=== PATIENT | male | born 1965 | race Caucasian/White ===

== ENCOUNTER 2021-08-19 08:13 | Inpatient (IN) | payer BC ==
[2021-08-19] VITALS (22 sets, daily range): BP systolic 109–150; BP diastolic 62–88
[~2021-08-19] VITALS: Ht 182.9 cm; Wt 88.5 kg
[2021-08-19 08:48] LABS: ABSOLUTE NEUTROPHILS 3.2 thou/uL (1.4-8.2); BASOPHILS 0.4 % (0.0-2.0); HEMATOCRIT 47.1 % (42.0-52.0); HEMOGLOBIN 16.4 gm/dL (14.0-18.0); MCHC 34.8 g/dL (28.0-37.0); MCV 97.7 fL (80.0-100.0); MONOCYTES 9.9 % (1.0-8.0); PLATELET COUNT 186 thou/uL (150-400); POLYS 83.7 % (36.0-66.0); RBC 4.82 mil/uL (4.50-6.00); RDW 12.1 % (10.5-14.5); WBC 3.9 thou/uL (4.0-11.0)
[2021-08-19 08:56] LABS: CALCIUM 8.5 mg/dL (8.5-10.1); CREATININE 1.2 mg/dL (0.7-1.3)
--- NOTE | 2021-08-19 08:56 | EKG ---
[address] [place] [address] ELECTROCARDIOGRAM REPORT Name: DWAYNE ATKINS Room #: PRE M.R.#: [id number] Admission: Attend Phys: Discharge: Date of : 61 Report #: [id number] [facility] ED Test Date: 2021-08-19 Test Time: 08:27:46 Pat Name: DWAYNE ATKINS Department: Room: Gender: Ostrich Farmer: PIERO : 1965 Requested By: Abrahan Bojorquez Order Number: [id number] MD: Javier Desir Measurements Intervals [place] Rate: 97 P: 37 [place]: 140 QRS: -31 QRSD: 83 T: 11 QT: 329 QTc: 418 Interpretive Statements Sinus rhythm Inferior infarct, old No previous ECG available for comparison Electronically Signed On 08-19-2021 8:56:31 ACCOUNT ADVISOR by Javier Desir [email or web address] <ELECTRONICALLY SIGNED> By: Javier Desir MD, [facility] 08/19/21 0856 0827 0827 Javier Desir MD, [facility] /EPI
[2021-08-19 09:06] LABS: ALBUMIN 3.1 g/dL (3.4-5.0); TOTAL BILIRUBIN 1.6 mg/dL (0.2-1.0); TOTAL PROTEIN 7.2 g/dL (6.4-8.2)
[2021-08-19 11:00] LABS: BE(vivo) -2.6 mmol/L (-2 to +3); HCO3 18.9 mmol/L (22.0-26.0); PCO2 25.8 mmHg (35.0-45.0); pH 7.483 (7.360-7.450); sO2 83.9 % (92.0-98.0)
[2021-08-19 11:01] LABS: PO2 43.5 mmHg (80.0-100.0)
[2021-08-19 12:11] LABS: BE(vivo) 0.4 mmol/L (-2 to +3); HCO3 22.6 mmol/L (22.0-26.0); PCO2 30.5 mmHg (35.0-45.0); PO2 69.4 mmHg (80.0-100.0); pH 7.487 (7.360-7.450); sO2 95.3 % (92.0-98.0)
--- NOTE | 2021-08-19 15:46 | NUR ---
PATIENT ADMITTED TO ICU RM 240 THIS AFTERNOON. ON BIPAP, FEBRILE, TACHYPNIC. OTHER VITALS STABLE. ALERT AND ORIENTED AND DENIES PAIN OR SOB. ADMISION ASSESSMENT, HISTORY, AND EDUCATION COMPLETED AND QNS ANSWERED. ORDERS ACKNOWLEDGED AND SPOUSE UPDATED OVER THE PHONE AND PRIVACY CODE PROVIDED.
--- NOTE | 2021-08-19 22:20 | NUR ---
SPOKE WITH Feng SHERMAN SENIOR SUPPLY CHAIN ANALYST D/T PATIENT STATING FEELING ANXIOUS, PULLING AT MEDICAL EQUIPMENT, TACHYPNEIC, AND FIDGETING WITH BED LINEN. ORDERS RECEIVED.
--- NOTE | 2021-08-19 23:20 | NUR ---
SPOKE WITH DR. TOM D/T PATIENT CONTINUING TO PULL AT MEDICAL EQUIPMENT, REMOVING BIPAP MASK, AND TACHYPNEIC. ORDERS RECEIVED.
[2021-08-20] VITALS (33 sets, daily range): BP systolic 92–179; BP diastolic 54–155
[2021-08-20 02:19] LABS: ABSOLUTE NEUTROPHILS 2.3 thou/uL (1.4-8.2); BASOPHILS 0.4 % (0.0-2.0); EOSINOPHILS 0.1 % (0.0-3.0); HEMATOCRIT 41.8 % (42.0-52.0); HEMOGLOBIN 14.5 gm/dL (14.0-18.0); LYMPHOCYTES 11.9 % (24.0-44.0); MCH 34.5 pg (26.0-34.0); MCHC 34.7 g/dL (28.0-37.0); MCV 99.4 fL (80.0-100.0); PLATELET COUNT 194 thou/uL (150-400); POLYS 75.6 % (36.0-66.0); RDW 12.5 % (10.5-14.5)
[2021-08-20 02:59] LABS: ALBUMIN 2.4 g/dL (3.4-5.0); CALCIUM 7.6 mg/dL (8.5-10.1); CREATININE 1.1 mg/dL (0.7-1.3); MAGNESIUM 2.4 mg/dL (1.8-2.4); POTASSIUM 4.1 mmol/L (3.5-5.1); TOTAL BILIRUBIN 0.9 mg/dL (0.2-1.0); TOTAL PROTEIN 6.1 g/dL (6.4-8.2)
--- NOTE | 2021-08-20 08:14 | HC ---
[facility] [place] [address] [place] [address] CONSULTATION Name: DWAYNE ATKINS Room #: 240-P ADM IN M.R.#: [id number] Admission: 08/19/21 Attend Phys: Logan Ramos MD Discharge: Date of : 61 Report #: [id number] THIS REPORT FOR: cc: FAM - Family physician unknown FAM - Family physician unknown Josue Kat MD ~ DATE OF SERVICE: 08/19/2021 INFECTIOUS DISEASE CONSULTATION ATTENDING PHYSICIAN: Dr. Ramos. REASON FOR EVALUATION: COVID-19 infection, complicated by pneumonitis, respiratory failure with ARDS. HISTORY OF PRESENT ILLNESS: Chart reviewed. The patient examined. This is a 55-year-old gentleman without significant medical history, who has been ill for the last number of days, associated nonproductive cough, subsequently developed progressive dyspnea, flu-like symptoms. He notes severe headache early on with fevers, presented to the Emergency Room, confirmed to have a positive COVID test. He was borderline leukopenic, lymphocytopenic as well. Influenza antigen was negative. He was hyponatremic with sodium 125. His LFTs were elevated, AST of 219, ALT of 145. Chest x-ray showed bilateral diffuse multifocal infiltrates. CT of the chest ____ mildly elevated D-dimer. No evidence of ____ confirmed extensive pulmonary infiltrates. Initial ABGs showed pH 7.483, pCO2 of 25.8, pO2 of 43.5 on 15 liters with FiO2 of 97%. Procalcitonin was 0.31. He was started on empiric therapy with azithromycin, ceftriaxone, remdesivir was started in addition to corticosteroids. He is in moderate distress at this point, he is generally lucid, maintained on the BiPAP at 100%. ALLERGIES: None known. MEDICATIONS: Currently include ascorbic acid, zinc, cholecalciferol, dexamethasone, guaifenesin, famotidine, zolpidem, ceftriaxone, azithromycin, remdesivir. PAST MEDICAL HISTORY: Otherwise, unremarkable. SOCIAL HISTORY: Former smoker. Occasional ethanol. No illicit drug use. FAMILY HISTORY: Noncontributory. REVIEW OF SYSTEMS: Otherwise, unremarkable. PHYSICAL EXAMINATION: GENERAL: He is in omkchjol-kd-xmukba distress at this point. Breathing is [facility] [address] [place] [address] CONSULTATION Name: DWAYNE ATKINS Room #: 240-P [facility] IN .R.#: [id number] Admission: 08/19/21 Attend Phys: Logan Ramos MD Discharge: Date of : 61 Report #: [id number] labored. He is generally lucid, reasonably well nourished. VITAL SIGNS: Temperature max 101.0, more recently 97.1. Pulse 83, respirations 16, blood pressure 133/86. SKIN: Warm, dry, no rashes. HEENT: BiPAP in place. NECK: Supple. Extraocular muscles intact. LUNGS: Bilateral scattered coarse breath sounds. HEART: Regular. I do not appreciate a murmur. ABDOMEN: Slightly distended, mildly firm, nontender. EXTREMITIES: No cyanosis or edema. GENITOURINARY AND RECTAL: Deferred. LABORATORY DATA: Sed rate of 15. CRP of 91.3. ABGs as described above. Electrolytes: Sodium 125, potassium 4.0, chloride 90, bicarbonate is 25, anion gap of 10, BUN and creatinine 12 and 1.2. Glucose of 120. AST of 219, ALT of 145, total bilirubin of 1.6, protein of ____, albumin 3.1. Influenza antigen was negative. CBC: White count of 3.9, H and H of 16.4 and 47.1, platelets of 186. ASSESSMENT AND PLAN: Coronavirus-19 infection, complicated by pneumonitis from respiratory failure with acute respiratory distress syndrome with some evidence of multiorgan dysfunction, though he has no known medical history. I would be concerned about an occult process. We will do additional diagnostic testing including lab work as well as abdominal ultrasound to evaluate the biliary tract. He remains quite tenuous at this point. I would not be surprised if he had further clinical deterioration. We will broaden out his antimicrobial therapy. <ELECTRONICALLY SIGNED> By: Josue Kat MD 08/20/21 0814 1532 0024 Josue Kat MD /nt
--- NOTE | 2021-08-20 13:39 | NUR ---
PT SPOKE TO DR. LINDSAY, DR. STAFFORD AND DR. TOM ABOUT HIS DECISION TO BE INTUBATED, ONE MOMENT THE PATIENT STATES HE DOES NOT WANT INTUBATION AND THEN THE NEXT HE DOES WANT TO BE INTUBATED, OR TO SPEAK TO HIS ABOUT IT. THERE REMAINS SOME CONFUSION REGARDING PATIENTS WISHES REGARDING INTUBATION. SPOKE WITH PT (ROSY) REGARDING HIS CARE. SHE WOULD LIKE FOR A DOCTOR TO REACH OUT TO HER AND UPDATE HER REGARDING PT CARE, TREATMENT PLANS AND GOALS. ROSY () PHONE NUMBER IS [phone]
--- NOTE | 2021-08-20 15:15 | NUR ---
CONSULT [id number] WAS COMPLETED BY THIS PHARMACIST IN CHARGE, TODAY.
--- NOTE | 2021-08-20 15:44 | NUR ---
PICC PLACED FOR ICU NEEDS. PT AWARE OF INCREASED RISK FOR DVT WITH PICC OVER A CL
--- NOTE | 2021-08-20 16:27 | NUR ---
PT ADMITTED RELATED TO COVID AND HYPOXIA. CM REVIEWED CHART AND SPOKE WITH CARE TEAM. PT'S CARE DISCUSSED DURING ICU ROUNDS. PT IS ON BIPAP. PT ON REGULAR DIET. PT ON IV ABX AND GETTING REMDESIVIR. PT IS ALERT AND ORIENTED. CARE TEAM INDICATED THAT PT WANTED TO COMPLETE DPOA PAPERWORK. CM CALLED AND SPOKE WITH PT'S SPOUSE ROSY THIS MORNING. SHE INDICATED THAT SHE AND PT RESIDE IN A HOUSE AND THAT PT HAD BEEN INDEPEDNENT WITH ADLS AND GAIT NEWS DIRECTOR. SHE INDICATED THAT SHE IS EXPERIENCING SYMPTOMS HERSELF. SHE INDICATED THAT PT HASN'T SEEN A PHYSICIAN IN A LONG TIME BUT HAD LAST SEEN DR. HORTENCIA BARRAGAN. SPOUSE INDICATED THAT SHE DIDN'T THINK THEY WANTED REMDESIVIR. SHE MENTIONED THERE WERE SOME TESTES SHE MAY WANT TO SEE ABOUT HAVING DONE AND A PARTICULAR PROTOCAL THAT SHE MAY BE INTERESTED IN. CM INDICATED THAT CM WOULD REACH OUT TO PHYSICIANS TO CALL HER TO DISCUSS PT'S CARES. DPOA COMPLETED. CM FOLLOWING REGARDING DC PLANNING.
[2021-08-20 23:06] LABS: HIV ANTIBODY Non Reactive (Non Reactive)
[2021-08-21] VITALS (30 sets, daily range): BP systolic 100–200; BP diastolic 70–112
[2021-08-21 04:38] LABS: BE(vivo) 2.9 mmol/L (-2 to +3); PCO2 25.1 mmHg (35.0-45.0); PO2 291.9 mmHg (80.0-100.0); pH 7.579 (7.360-7.450); sO2 99.8 % (92.0-98.0)
[2021-08-21 04:48] LABS: ALBUMIN 2.6 g/dL (3.4-5.0); CALCIUM 8.2 mg/dL (8.5-10.1); CREATININE 0.9 mg/dL (0.7-1.3); MAGNESIUM 2.5 mg/dL (1.8-2.4); POTASSIUM 4.3 mmol/L (3.5-5.1); TOTAL BILIRUBIN 0.5 mg/dL (0.2-1.0); TOTAL PROTEIN 6.2 g/dL (6.4-8.2)
[2021-08-21 05:15] LABS: ABSOLUTE NEUTROPHILS 4.8 thou/uL (1.4-8.2); BASOPHILS 0.1 % (0.0-2.0); HEMATOCRIT 45.4 % (42.0-52.0); HEMOGLOBIN 15.4 gm/dL (14.0-18.0); LYMPHOCYTES 8.6 % (24.0-44.0); MCH 33.9 pg (26.0-34.0); MCV 99.6 fL (80.0-100.0); MONOCYTES 10.5 % (1.0-8.0); PLATELET COUNT 252 thou/uL (150-400); POLYS 80.8 % (36.0-66.0); RBC 4.56 mil/uL (4.50-6.00); RDW 12.8 % (10.5-14.5); WBC 5.9 thou/uL (4.0-11.0)
--- NOTE | 2021-08-21 11:46 | NUR ---
PT'S CALLED EARLIER IN THE MORNING AT 0830, REQUESTED UPDATE ON THE PT, PT FOUR DIGIT CODE VERIFIED, RN PROVIDED UPDATE BEST POSSIBLE INCLUDING CURRENT ANTIBIOTIC REGIMEN PT IS ON, AND HOW THE PT IS DOING ON THE BIPAP MACHINE. RN DID STATE THAT SINCE IT IS THE BEGINNING OF THE SHIFT, RN CANNOT PROVIDE THE BEST UPDATE COMPARED TO END OF THE DAY WHEN RN HAD CHANCE TO INTERACT CLOSER WITH THE PATIENT, STATED UNDERSTANDING AND STATED SHE WILL CALL LATER IN THE DAY AND ALSO STATED WANTING TO SPEAK WITH A PHYSICIAN, RN LATER SAW THE HOSPITALIST AND REQUESTED THAT SHE REACH OUT TO THE WHEN POSSIBLE, NUMBER PROVIDED. PT WAS IN THE ROOM ON THE BIPAP, HAD QUESTIONS REGARDING WHAT TO DO AND COURSE OF CARE, RN EXPLAINED THAT CONSERVATION OF ENERGY TO FIGHT THE VIRUS WAS VITAL AT THIS TIME AND PT SHOULD FOCUS ON INHALING SLOW/DEEP TO OXYGENATE MANY ALVEOLI'S POSSIBLE, AND SHOULD KEEP A CALM MIND, LEAVE THE BIPAP ON OXYGEN IS A VITAL SOURCE TO ENERGY CONVERSION, ALSO DISCUSSED THE NEED FOR NUTRIENT. RN ALSO PROVIDED IN DEPTH EDUCATION ABOUT MEDICATIONS BEING PROVIDED AND WHY IT IS BEING PROVIDED, PT VERBALIZED UNDERSTANDING AND GRATITUDE. RN PROVIDED REPORT TO ONCOMING RN AND AM SIGNING OF AT THIS TIME.
--- NOTE | 2021-08-21 14:40 | NUR ---
PAGED DR. BROWN, RE HTN. ORDERS GIVEN. PT COMFORTABLE CURRENTLY LYING ON SIDE.
--- NOTE | 2021-08-21 22:45 | NUR ---
PT ALERT AND ORIENTED X4. HR FLUCTUATING AT START OF SHIFT AFIB 101-140. METOPROLOL 5 MG GIVEN IV. HR IS NOW STAYING IN 90S. BP WNL.PT TURNED TO SIDE SAT DECREASED TO 89-93. WILL REPOSITION PT. NOTIFIED STITCHDOWN TOE FORMER BS 215 AND NO SS INSULIN. NO ORDERS GIVEN. BED DOWN. CALL LIGHT IN REACH. BED ALARM IS ON. PT IS ABLE TO TURN SELF IN THE BED.
--- NOTE | 2021-08-21 23:55 | NUR ---
FIO2 INCREASED TO 75% PER RT. O2SATS NOW 95% RR 20.
[2021-08-22] VITALS (24 sets, daily range): BP systolic 103–152; BP diastolic 64–108
--- NOTE | 2021-08-22 01:14 | NUR ---
RR 34 WHILE LYING SEMI FOWLERS. FENTANYL 50 MCG GIVEN IV. RR DOWN TO 18-21 NOW. SAT 93-94% WITH PT LYING ON RIGHT SIDE.
[2021-08-22 04:50] LABS: ABSOLUTE NEUTROPHILS 5.5 thou/uL (1.4-8.2); BASOPHILS 0.2 % (0.0-2.0); HEMATOCRIT 45.5 % (42.0-52.0); HEMOGLOBIN 15.6 gm/dL (14.0-18.0); LYMPHOCYTES 4.5 % (24.0-44.0); MCH 33.9 pg (26.0-34.0); MCHC 34.4 g/dL (28.0-37.0); MCV 98.6 fL (80.0-100.0); MONOCYTES 5.5 % (1.0-8.0); PLATELET COUNT 235 thou/uL (150-400); POLYS 89.8 % (36.0-66.0); RBC 4.62 mil/uL (4.50-6.00); RDW 12.6 % (10.5-14.5); WBC 6.1 thou/uL (4.0-11.0)
[2021-08-22 05:18] LABS: ALBUMIN 2.6 g/dL (3.4-5.0); CALCIUM 8.1 mg/dL (8.5-10.1); CREATININE 0.7 mg/dL (0.7-1.3); MAGNESIUM 2.1 mg/dL (1.8-2.4); POTASSIUM 4.6 mmol/L (3.5-5.1); TOTAL BILIRUBIN 0.6 mg/dL (0.2-1.0); TOTAL PROTEIN 5.5 g/dL (6.4-8.2)
--- NOTE | 2021-08-22 05:49 | NUR ---
PT ALERT AND ORIENTED X4. VSS AFEBRILE. O2 DESATS TO 88% WHILE LYING SUPINE. SATS INCREASE TO 96% ON RIGHT OR LEFT SIDES. HR IN 80S AFTER METOPROLOL GIVEN LAST NIGHT, NO C/O PAIN, FENTANTL GIVEN FOR ANXIETY AND RR TONIGHT. LUNGS SOUND CLEAR UPPERS DIMINISHED AT BASES. PT REFUSED ORAL CARE AND BATH THIS AM. HE STATED HE WOULD DO IT LATER THIS AM. BIPAP 18/8 RT 16 FIO2 75% THIS AM. PT PROGRESSING SLOWLY TOWARDS D/C.
--- NOTE | 2021-08-22 07:25 | NUR ---
CALLED ID, HIPPA COMPLIANT LINE X2 TO NOTIFY ID REGARDING SEPSIS SCREEN BEING POSITIVE THIS AMJose Alberto BURNETT RN NOTIFIED TO F/U WITH ID SINCE NO RETURN OF CALL YET.
--- NOTE | 2021-08-22 10:22 | EKG ---
[address] [place] [address] ELECTROCARDIOGRAM REPORT Name: DWAYNE ATKINS Room #: 240-P ADM IN M.R.#: [id number] Admission: 08/19/21 Attend Phys: Logan Ramos MD Discharge: Date of : 61 Report #: [id number] [facility] Test Date: 2021-08-21 Test Time: 12:43:05 Pat Name: DWAYNE ATKINS Department: Room: 240 P Gender: M Director Of Consulting Services: : 1965 Requested By: Dexter Esquivel Order Number: [id number] MD: Javier Desir Measurements Intervals [place] Rate: 93 P: [place]: QRS: -3 QRSD: 93 T: 23 QT: 357 QTc: 445 Interpretive Statements Atrial fibrillation Small inferior Q waves Artifact in lead(s) I,III,aVR,aVL,aVF,V5 Compared to ECG 08/19/2021 08:27:46 Sinus rhythm no longer present Electronically Signed On 08-22-2021 10:22:04 [employer] by Javier Desir [email or web address] <ELECTRONICALLY SIGNED> By: Javier Desir MD, [facility] 08/22/21 1022 1243 1243 Javier Desir MD, [facility] /EPI
--- NOTE | 2021-08-22 13:51 | NUR ---
PT CONTINUES TO BE AFIB TODAY ON THE MONITOR, RN ASKED PATIENT TO TAKE MEDICATIONS AND BRUSHED TEETH, RN ALSO PROVIDED IN BED BEDBATH USING CHLORHEXEDINE WIPES, PT VERBALIZED GRATITUDE. IT WAS ALSO NOTED THAT PT IS SHAKY/AND WEAK, UNABLE TO TOLERATE BEING OFF THE BIPAP FOR A DURATION GREATER THAN 20 SECONDS. MINIMAL DISRUPTION TO THE BIPAP TREATMENT HIGHLY RECOMMENDED. PT WAS ALSO REQUESTED TO PRONE, AND WAS GIVEN EDUCATION ON THE IMPORTANCE OF PRONING, PT VERBALIZED UNDERSTANDING HAS BEEN PRONING SINCE 0900, WHEN IN PRONE POSITION PT'S O2 SAT IS CLOSER TO 100 AND WHEN OFF OF PRONE PT IS CLOSER TO 93-94%. ENSURE DRINKS HAVE BEEN PROVIDED DURING EVERY MEAL TIME.
[2021-08-23] VITALS (23 sets, daily range): BP systolic 116–151; BP diastolic 60–107
[2021-08-23 05:14] LABS: ALBUMIN 2.7 g/dL (3.4-5.0); CALCIUM 8.7 mg/dL (8.5-10.1); CREATININE 0.7 mg/dL (0.7-1.3); MAGNESIUM 1.9 mg/dL (1.8-2.4); POTASSIUM 4.2 mmol/L (3.5-5.1); TOTAL BILIRUBIN 0.6 mg/dL (0.2-1.0); TOTAL PROTEIN 6.1 g/dL (6.4-8.2)
[2021-08-23 05:18] LABS: ABSOLUTE NEUTROPHILS 8.3 thou/uL (1.4-8.2); BASOPHILS 0.1 % (0.0-2.0); EOSINOPHILS 0.1 % (0.0-3.0); HEMATOCRIT 49.9 % (42.0-52.0); HEMOGLOBIN 16.9 gm/dL (14.0-18.0); MCH 33.6 pg (26.0-34.0); MCHC 33.9 g/dL (28.0-37.0); MCV 99.2 fL (80.0-100.0); MONOCYTES 3.2 % (1.0-8.0); PLATELET COUNT 247 thou/uL (150-400); POLYS 91.6 % (36.0-66.0); RBC 5.03 mil/uL (4.50-6.00); RDW 12.5 % (10.5-14.5)
--- NOTE | 2021-08-23 05:33 | NUR ---
PT SELF PRONED UNTIL 0500. WHILE PATIENT BACK SUPINE FIO2 WAS TURNED UP TO 75% TO MAINTAIN SATS ABOVE 90%.
--- NOTE | 2021-08-23 08:36 | NUR ---
PT NOT PROGRESSING TOWARDS DISCHARGE AT THIS TIME AEB, PT'S LESSER INTOLERANCE OF BEING OFF THE BIPAP, YESTERDAY WHEN PT WAS OFF THE BIPAP FOR ORAL MEDS PT WAS TOLERABLE AND ABLE TO RECOOPERATE, TODAY PT IS STRUGGLING TO RECOOPERATE, APPEARS MUCH MORE TIRED, CONCENTRATED RED SKIN COLORATION AROUND THE CHEST, OVERALL FATIGUED. PT IS STATING GREATER DIFFICULTY PRONING IN THE EVENING DUE TO THE BACK PAIN, ALSO HR HAS BEEN SPIKING MUCH HIGHER THAN YESTEDAY, BNP LEVELS ARE ELEVATED. CONCERNS RAISED MADE KNOWNST TO MD, CXR ORDERED
[2021-08-23 09:24] LABS: BE(vivo) 1.9 mmol/L (-2 to +3); HCO3 24.1 mmol/L (22.0-26.0); PCO2 31.7 mmHg (35.0-45.0); pH 7.498 (7.360-7.450); sO2 94.7 % (92.0-98.0)
--- NOTE | 2021-08-23 22:04 | NUR ---
Pt proned at 2130. Sat 98% on FiO2 80%. Fentanyl 50 mcg IVP and Rigo Huber muscle rub used for lower back pain.
--- NOTE | 2021-08-23 23:24 | NUR ---
O2 sat up to 99%; FiO2 titrated down to 70%. Precedex gtt started at 0.4 mcg/kg/hr for anxiety. Will titrate as neede.
[2021-08-24] VITALS (24 sets, daily range): BP systolic 85–114; BP diastolic 58–90
[2021-08-24 05:56] LABS: BASOPHILS 0.2 % (0.0-2.0); EOSINOPHILS 0.9 % (0.0-3.0); HEMATOCRIT 50.2 % (42.0-52.0); HEMOGLOBIN 17.1 gm/dL (14.0-18.0); MCH 33.9 pg (26.0-34.0); MCV 99.7 fL (80.0-100.0); MONOCYTES 1.4 % (1.0-8.0); PLATELET COUNT 197 thou/uL (150-400); POLYS 93.5 % (36.0-66.0); RBC 5.04 mil/uL (4.50-6.00); RDW 12.5 % (10.5-14.5); WBC 9.7 thou/uL (4.0-11.0)
--- NOTE | 2021-08-24 06:05 | NUR ---
No progress towards goals tonight. Pt unable to prone for more than 4 hours tonight. FiO2 titrated up to 90% on bipap to keep sat >90%. Monitor remains a-fib, rates 70-115. Cardizem gtt titrated down to 5 mg/hr due to decrease BP. Pt started on Precedex gtt to try and decrease anxiety and discomfort while proning. Anxiety better but pt still unable to prone. Muscle rub cream used to help with back pain with partial relief of pain achieved. Pt continues to void without difficulty and has adequate urine output.
[2021-08-24 06:40] LABS: ALBUMIN 2.9 g/dL (3.4-5.0); CALCIUM 8.8 mg/dL (8.5-10.1); CREATININE 0.8 mg/dL (0.7-1.3); MAGNESIUM 1.8 mg/dL (1.8-2.4); POTASSIUM 4.2 mmol/L (3.5-5.1); TOTAL BILIRUBIN 0.7 mg/dL (0.2-1.0); TOTAL PROTEIN 6.1 g/dL (6.4-8.2)
--- NOTE | 2021-08-24 07:35 | NUR ---
PT APPEARANCE LOOKS EXHAUSTED THIS MORNING, NOTIFIED MD, NOTIFIED AND PROVIDED UPDATE. WILL CALL PHARMACY TO HAVE PO MEDS EXCHANGED TO IV FORM POSSIBLE. PT SATTING WORSE, NEEDING HR GTT, DECLINE IN PRONE PERIOD FROM 6-8 HOURS DURING DAYS TO 4HRS EVEN WITH MEDICATION INTERVENTIONS. CXR/ABG ORDERED BY . RN FOLLOWING CLOSELY.
[2021-08-24 08:11] LABS: BE(vivo) 2.8 mmol/L (-2 to +3); HCO3 25.2 mmol/L (22.0-26.0); PCO2 33.5 mmHg (35.0-45.0); PO2 66.4 mmHg (80.0-100.0); pH 7.495 (7.360-7.450); sO2 94.7 % (92.0-98.0)
--- NOTE | 2021-08-24 17:05 | NUR ---
CM REVIEWED CHART AND SPOKE WITH NURSE THIS DAY. PT'S CARE DISCUSSED DUING ICU ROUNDS THIS DAY. PT IS ON BIPAP AT 90%. CM FOLLOWING.
[2021-08-25] VITALS (25 sets, daily range): BP systolic 97–130; BP diastolic 67–84
--- NOTE | 2021-08-25 01:07 | NUR ---
Pt proned from 1600 to 2200. At 0045 pt began to drop O2 sat down to 86-88% despite titrating bipap FiO2 up to 100%, respiratory rate in mid 20's, breath sounds remained diminished. Pt awakened and assisted into prone position at 0100. Plan to keep prone till at least 0300.
[2021-08-25 06:33] LABS: ALBUMIN 2.8 g/dL (3.4-5.0); CALCIUM 8.6 mg/dL (8.5-10.1); CREATININE 0.9 mg/dL (0.7-1.3); DIRECT BILIRUBIN 0.2 mg/dL (<0.1-0.2); PHOSPHORUS 4.4 mg/dL (2.5-4.9); POTASSIUM 4.2 mmol/L (3.5-5.1); TOTAL BILIRUBIN 0.7 mg/dL (0.2-1.0); TOTAL PROTEIN 6.1 g/dL (6.4-8.2)
--- NOTE | 2021-08-25 07:18 | NUR ---
No progress toward goals. Pt still has O2 sat 87-92% when laying on side or semi-fowlers, sat increases to 95-97% when prone. Pt proned from 1600 to 2300 and again from 0100 to 0300. Oxygen on bipap titrated up to 100% to try and maintain sat >90% when not proned. Pt remains NPO except for sips of ensure and lemon [place] soda. Voiding without difficulty. Monitor remains a-fib, rate 90-105 on Cardizem 15 mg per hour.
[2021-08-25 14:09] LABS: T-SPOT.TB Negative
--- NOTE | 2021-08-25 16:54 | NUR ---
Cm reviewed chart and spoke with nurse. Pt care disucssed in IUC rounds this day. Pt is on bipap at 100%. Pt is tolerating proming. TPN initiated. Nurse indicated she had spoken with pt's spouse this am. Cm following.
--- NOTE | 2021-08-25 19:25 | NUR ---
PT TOLERATED PRONING FROM 1200 UNTIL 1700 THIS SHIFT. PT HAD MINIMAL COMPLAINTS OF BACK PAIN BUT WAS COMPLIANT OF PRONING AND STATED "I DO NOT WANT TO BE INTUBATED." ROSY WAS UPDATED THIS AM AT 0830 REGARDING PT STATUS AND PLAN OF CARE. BIPAP FIO2 REMAINS 100% AND CARDIZEM GTT REMAINS @ 15. PT WAS PLEASANT AND COOPERATIVE FOR THIS RN. WILL CONTINUE TO MONITOR AND FOLLOW PLAN OF CARE.
[2021-08-25 21:29] LABS: BE(vivo) 1.1 mmol/L (-2 to +3); HCO3 23.3 mmol/L (22.0-26.0); PCO2 31.2 mmHg (35.0-45.0); PO2 67.3 mmHg (80.0-100.0); pH 7.491 (7.360-7.450); sO2 94.9 % (92.0-98.0)
[2021-08-26] VITALS (23 sets, daily range): BP systolic 95–139; BP diastolic 63–88
[2021-08-26 05:41] LABS: ALBUMIN 2.7 g/dL (3.4-5.0); CALCIUM 8.6 mg/dL (8.5-10.1); CREATININE 0.9 mg/dL (0.7-1.3); DIRECT BILIRUBIN 0.1 mg/dL (<0.1-0.2); PHOSPHORUS 5.2 mg/dL (2.5-4.9); POTASSIUM 4.4 mmol/L (3.5-5.1); TOTAL BILIRUBIN 0.6 mg/dL (0.2-1.0); TOTAL PROTEIN 5.8 g/dL (6.4-8.2)
--- NOTE | 2021-08-26 06:26 | NUR ---
Pt remains on 100% of BIPAP in this shift. Unable to wean down O2 due to shortness of breath and desaturation easily. ABG obtained ; see result. He is able to prone from 1130 pm to 4.30 am in this shift. C/O lower back pain, meds are given as chart per EMAR. NSR on monitor, he is tolerating cardizem gtt well. Continue monitor any changes.
--- NOTE | 2021-08-26 13:36 | NUR ---
ASSUMED CARE OF PT AT 0700 SPOKE TO PTS AND UPDATED HER PER POC
[2021-08-27] VITALS (22 sets, daily range): BP systolic 88–151; BP diastolic 65–91
[2021-08-27 04:30] LABS: BE(vivo) 1.6 mmol/L (-2 to +3); HCO3 24.5 mmol/L (22.0-26.0); PCO2 34.1 mmHg (35.0-45.0); pH 7.475 (7.360-7.450); sO2 92.1 % (92.0-98.0)
[2021-08-27 05:56] LABS: ABSOLUTE NEUTROPHILS 9.9 thou/uL (1.4-8.2); BASOPHILS 0.2 % (0.0-2.0); EOSINOPHILS 0.5 % (0.0-3.0); HEMATOCRIT 43.6 % (42.0-52.0); LYMPHOCYTES 1.6 % (24.0-44.0); MCH 33.8 pg (26.0-34.0); MCHC 33.6 g/dL (28.0-37.0); MCV 100.4 fL (80.0-100.0); MONOCYTES 2.4 % (1.0-8.0); POLYS 95.3 % (36.0-66.0); RBC 4.34 mil/uL (4.50-6.00); RDW 12.8 % (10.5-14.5); WBC 10.4 thou/uL (4.0-11.0)
[2021-08-27 05:58] LABS: HEMOGLOBIN 14.7 gm/dL (14.0-18.0); PLATELET COUNT 91 thou/uL (150-400)
[2021-08-27 06:13] LABS: ALBUMIN 2.7 g/dL (3.4-5.0); ANION GAP 9 mmol/L (7-16); BUN 24 mg/dL (7-18); CALCIUM 8.5 mg/dL (8.5-10.1); CHLORIDE 102 mmol/L (98-107); CO2 25 mmol/L (21-32); CREATININE 0.8 mg/dL (0.7-1.3); DIRECT BILIRUBIN < 0.1 mg/dL (<0.1-0.2); GLUCOSE 185 mg/dL (74-106); PHOSPHORUS 3.9 mg/dL (2.6-4.7); SGOT 49 U/L (15-37); SGPT 48 U/L (16-63); SODIUM 136 mmol/L (136-145); TOTAL BILIRUBIN 0.4 mg/dL (0.2-1.0); TOTAL PROTEIN 5.7 g/dL (6.4-8.2)
--- NOTE | 2021-08-27 15:19 | NUR ---
Cm reviewed chart and spoke with nurse. Pt's care discussed during icu rounds this day. Pt is on Bipap at 70%. Care team indicated that pt continues to tolerate proning. PT continues on TPN and is drinking ensures with his bipap on. No weekend dc anticipated. Nursing updating his . Cm following.
--- NOTE | 2021-08-27 16:45 | NUR ---
PT REQUIRES >80% FI02 ON THE BIPAP; HE IS PRONING STARTING AT 1645.
[2021-08-28] VITALS (26 sets, daily range): BP systolic 116–167; BP diastolic 74–108
--- NOTE | 2021-08-28 06:05 | NUR ---
No significant progress toward goals. Has remained proned since 1645 yesterday afternoon. Sat has remained 95-98% on FiO2 90%. Voiding without difficulty. Back muscle spasm pain controlled with carisoprodol, oral Valium, and Rigo Huber. Pt still has had problems sleeping tonight.
[2021-08-28 06:47] LABS: ALBUMIN 2.5 g/dL (3.4-5.0); CALCIUM 8.2 mg/dL (8.5-10.1); CREATININE 0.7 mg/dL (0.7-1.3); DIRECT BILIRUBIN 0.1 mg/dL (<0.1-0.2); MAGNESIUM 1.7 mg/dL (1.8-2.4); PHOSPHORUS 3.9 mg/dL (2.5-4.9); POTASSIUM 4.1 mmol/L (3.5-5.1); TOTAL BILIRUBIN 0.4 mg/dL (0.2-1.0); TOTAL PROTEIN 5.5 g/dL (6.4-8.2)
[2021-08-29] VITALS (23 sets, daily range): BP systolic 111–194; BP diastolic 73–161
[2021-08-29 05:14] LABS: ALBUMIN 2.5 g/dL (3.4-5.0); CALCIUM 8.4 mg/dL (8.5-10.1); CREATININE 0.7 mg/dL (0.7-1.3); MAGNESIUM 1.9 mg/dL (1.8-2.4); PHOSPHORUS 3.1 mg/dL (2.5-4.9); TOTAL BILIRUBIN 0.4 mg/dL (0.2-1.0); TOTAL PROTEIN 5.6 g/dL (6.4-8.2)
--- NOTE | 2021-08-29 21:27 | NUR ---
Pt very tearful and anxious this evening. Voices fears over intubation, not getting better and never seeing his family again. Sat and talked with patient for about 10 minutes. Plan to use CLRT tonight instead of proning to conserve patient energy. Pt had text his friends to not text him so that he can rest. Shared with pt my own experience having Covid and being intubated. Pt decision to try and make it 3 more days with current therapies and if he does not improve will try intubation. Pt desaturated to 83% with talking. FiO2 increased to 100% at 2125. O2 sat now 92%.
[2021-08-30] VITALS (21 sets, daily range): BP systolic 117–200; BP diastolic 70–121
[2021-08-30 05:13] LABS: HEMATOCRIT 43.4 % (42.0-52.0); HEMOGLOBIN 14.8 gm/dL (14.0-18.0); MCHC 34.1 g/dL (28.0-37.0); MCV 99.5 fL (80.0-100.0); RBC 4.36 mil/uL (4.50-6.00); RDW 12.7 % (10.5-14.5); WBC 11.9 thou/uL (4.0-11.0)
[2021-08-30 05:45] LABS: BE(vivo) 0.3 mmol/L (-2 to +3); HCO3 22.8 mmol/L (22.0-26.0); PCO2 31.4 mmHg (35.0-45.0); pH 7.479 (7.360-7.450); sO2 90.4 % (92.0-98.0)
[2021-08-30 05:46] LABS: PO2 53.6 mmHg (80.0-100.0)
[2021-08-30 06:23] LABS: ALBUMIN 2.6 g/dL (3.4-5.0); CALCIUM 8.3 mg/dL (8.5-10.1); CREATININE 0.8 mg/dL (0.7-1.3); MAGNESIUM 1.7 mg/dL (1.8-2.4); PHOSPHORUS 3.5 mg/dL (2.6-4.7); POTASSIUM 3.8 mmol/L (3.5-5.1); TOTAL BILIRUBIN 0.4 mg/dL (0.2-1.0); TOTAL PROTEIN 5.4 g/dL (6.4-8.2)
--- NOTE | 2021-08-30 14:45 | NUR ---
Pt's spouse here to visit today and notes frustration with pt being in enhanced ISO and not being able to visit him. She expressed concerns about feeling that she does not know what is going on with him and he is not able to talk to her due to the bipap. She confirms daily conversation with unit RN but would like to speak with the attending. Message sent to the attending Dr. Saleh today and he will call her on her cell [phone]. Emotional support provided.
--- NOTE | 2021-08-30 15:50 | NUR ---
RN RECEIVED REPORT FROM SHELL FISHERMAN RN. SHELL FISHERMAN RN MENTIONED PT STATED HE WANTED TO WAIT 3 DAYS AND IF HE ISN'T BETTER HE IS OPEN TO TALK ABOUT INTUBATION. PT FOR MOST OF THE DAY HAS BEEN SATTING 86-88%. RN LET DR VELASCO AND VAISHALI KNOW ABOUT LOWER O2 SATS. PT IS STILL A/OX4 AND DOES NOT WANT TO BE INTUBATED AT THIS TIME. PT O2 SAT HAS BEEN HIGH 93 AND LOW 79%. PT IS CALM AND COOPERATIVE AND IS WANTING TO PRONE THIS EVENING. PT HAS AUTO ROTATION ON NOW. WILL CONTINUE TO MONITOR AND FOLLOW PLAN OF CARE.
--- NOTE | 2021-08-30 16:55 | NUR ---
CM REVIEWED CHART AND SPOKE WITH NURSE. PT'S CRE DISCUSSED DURING ICU ROUNDS THIS DAY. CARE TEAM INDICATED THAT PT WAS ON BIPAP AT 100% WITH SATS BETWEEN 82-86. THIS AFTERNOON NURSE INDICATED THAT PT HAD BM AND THAT SATS IMPROVED. PT'S SPOUSE VISITED AND SPOKE WITH CM DEPARTMENT. HAD ASKED ABOUT PORTAL ACCESS. HOSPITALIST WAS ASKED TO CALL PT'S SPOUSE TO PROVIDE UPDATE. CM TO FOLLOW UP WITH PT AND SPOUSE TOMORROW.
[2021-08-31] VITALS (34 sets, daily range): BP systolic 103–208; BP diastolic 65–140
[2021-08-31 04:31] LABS: CALCIUM 8.4 mg/dL (8.5-10.1); CREATININE 0.7 mg/dL (0.7-1.3); POTASSIUM 4.2 mmol/L (3.5-5.1)
--- NOTE | 2021-08-31 05:25 | NUR ---
PTS CALLED FOR UPDATE. SPOUSE WAS FULLY UPDATED AND EDUCATED ON PATIENT STATUS AND PLAN OF CARE. ALL QUESTIONS WERE ANSWERED BY THIS NURSE DURING THE CALL.
--- NOTE | 2021-08-31 07:00 | NUR ---
PT PRONED FROM MIDNOC - 0600 WITH EXCELLENT RESULTS. PATIENT GIVEN SEVERAL MEDS 1 HOUR PRIOR TO PRONING. PATIENT 02 SATS 95-98% DURING PRONING. PATIENT STATED HE SLEPT WELL THROUGHOUT THE NOC. ONCE AWAKENED THIS AM, PT BECAME ANXIOUS, SHAKING, HOLDING CHEST, TACHYCARDIC, TACHYPNEIC, WITH 02 SATS HIGH 80S-LOW 90S. AT PT REQUEST, ADMINISTERED PRN DIAZEPAM. PT URINE OUTPUT ADEQUATE. WILL CONTINUE TO MONITOR AND FOLLOW POC.
--- NOTE | 2021-08-31 15:58 | NUR ---
Cm reviewed chart and spoke with nurse. Pt's care discussed with care team this day. Pt remains on bipap at 100%. Care team indicated that pt continues to prone. Dr. Saleh called pt's spouse this and provided updated. Care team indicated that pt may be tireing and may require vent in the near future. Cm following.
[2021-09-01] VITALS (28 sets, daily range): BP systolic 118–235; BP diastolic 78–141
[2021-09-01 06:31] LABS: HEMATOCRIT 40.1 % (42.0-52.0); HEMOGLOBIN 13.6 gm/dL (14.0-18.0); MCH 33.5 pg (26.0-34.0); MCHC 33.8 g/dL (28.0-37.0); MCV 98.9 fL (80.0-100.0); RBC 4.05 mil/uL (4.50-6.00); RDW 12.5 % (10.5-14.5); WBC 14.1 thou/uL (4.0-11.0)
[2021-09-01 06:58] LABS: ALBUMIN 1.5 g/dL (3.4-5.0); CALCIUM 7.3 mg/dL (8.5-10.1); CREATININE 1.1 mg/dL (0.7-1.3); POTASSIUM 3.2 mmol/L (3.5-5.1); TOTAL BILIRUBIN 0.8 mg/dL (0.2-1.0)
[2021-09-01 07:01] LABS: MAGNESIUM 0.8 mg/dL (1.8-2.4)
--- NOTE | 2021-09-01 07:42 | NUR ---
ASSUME CARE 1900. A/O X 4. PLEASANT. PT/VITALS STABLE/ BP RUNS HIGH SOMETIME, HYDRALAZINE ON BOARD FOR SBP> 170. INTERMITTENT UPPER BACK PAIN/TYLENOL FOR RELIEF. SR ON MONITOR. TOLERATING BIPAP WELL AT 100% FIO2 WITH SATS IN MID-HIGH 90s. ASSESSMENT CHARTED. PROGRESSING MODERATELY WITH POC. PLAN IS TO CONTINUE TO MONITOR AND MANAGE RESP FUNCTION AND ELECTROLYTES. WILL CONTINUE TO MONITOR AND FOLLOW WITH POC
[2021-09-01 23:30] LABS: MAGNESIUM 2.2 mg/dL (1.8-2.4)
[2021-09-01 23:32] LABS: POTASSIUM 4.4 mmol/L (3.5-5.1)
[2021-09-02] VITALS (33 sets, daily range): BP systolic 111–148; BP diastolic 67–104
[2021-09-02 05:23] LABS: CALCIUM 8.5 mg/dL (8.5-10.1); CREATININE 0.7 mg/dL (0.7-1.3); POTASSIUM 4.3 mmol/L (3.5-5.1)
--- NOTE | 2021-09-02 14:27 | NUR ---
Cm reviewed chart and spoke with nurse. Pt's care discussed during icu rounds this day. Care team indicated that pt is on bipap at 90-100%. Pt continues on TPN with lipids antonio hernández,kinjal. Pt's k and mag were replaced this day. Dru notified by fidelina WATERS that pt's spouse showed up at office again this day and expressed frustration that pt is still in iso and can't have visitors. Cm notified pt's nurse and called and left vm with Tanja Headley in infection control. Cm following.
--- NOTE | 2021-09-02 19:06 | NUR ---
SPOKE TO PATIENT , ROSY, TODAY TO UPDATE PATIENT CONDITION. PT IS TOLERATING BEING PRONE AND SUPINE, SLOWLY DECREASING FI02 TOLERATED. PT IS IN GOOD SPIRITS AND HOPES TO FACETIME WITH HIS FAMILY OVER THE HOLIDAY. POTENTIAL FOR REMOVING ISOLATION PRECAUTIONS, PENDING COVID RE-SWAB.
[2021-09-03] VITALS (24 sets, daily range): BP systolic 108–176; BP diastolic 77–114
[2021-09-03 06:15] LABS: ALBUMIN 2.4 g/dL (3.4-5.0); CREATININE 0.6 mg/dL (0.7-1.3); MAGNESIUM 1.9 mg/dL (1.8-2.4); PHOSPHORUS 4.1 mg/dL (2.5-4.9); POTASSIUM 4.2 mmol/L (3.5-5.1); TOTAL BILIRUBIN 0.5 mg/dL (0.2-1.0); TOTAL PROTEIN 6.3 g/dL (6.4-8.2)
[2021-09-04] VITALS (26 sets, daily range): BP systolic 96–219; BP diastolic 69–141
--- NOTE | 2021-09-04 03:26 | NUR ---
PATIENT'S O2 SATS HAVE BEEN FLUCTUATING GREATLY ALL NIGHT. PATIENT'S O2 SATS DROP INTO 60S WITH ANY EXERTION AND PATIENT HAS BEEN BECOMING MORE FREQUENTLY ANXIOUS CAUSING HIS OXYGEN SATS TO DROP. RN ABLE TO TALK PATIENT DOWN AND GET HIM TO BREATHE MORE SLOWLY AND DEEPLY. THIS RN SPOKE WITH PATIENT ABOUT CURRENT STATUS AND NEXT STEPS. PATIENT STILL STATING HE DOES NOT WANT TO BE INTUBATED YET DESPITE O2 SATS DROPPING MORE FREQUENTLY.
--- NOTE | 2021-09-04 17:29 | NUR ---
assumed care of pt at 0700. pt alert and oriented. remains on bipap at 100%. desaturates with minimal activity but able to recover. anxious but cooperative and responds well to meds. placed on precedex for brief period of time but episode of anxiety where patient was trying to reposition himself after proning and ripped mask off inadvertently and desaturated to 50%. after discussion, patient made conscious decision to refuse the sedative. changed to strict NPO per Pulm rec with exeption of sips with meds. respirations 20-30's. tachycardic on telemetry - 100-120's without events. kept updated via phone several times throughout the day. pt remains stable, but very fragile. no progress toward poc goals at this time.
[2021-09-05] VITALS (23 sets, daily range): BP systolic 84–201; BP diastolic 51–122
[2021-09-05 06:05] LABS: HEMATOCRIT 40.5 % (42.0-52.0); HEMOGLOBIN 13.2 gm/dL (14.0-18.0); MCHC 32.7 g/dL (28.0-37.0); MCV 100.8 fL (80.0-100.0); RBC 4.01 mil/uL (4.50-6.00); RDW 12.9 % (10.5-14.5); WBC 17.7 thou/uL (4.0-11.0)
[2021-09-05 06:22] LABS: CREATININE 0.7 mg/dL (0.7-1.3); PHOSPHORUS 4.4 mg/dL (2.6-4.7); POTASSIUM 4.9 mmol/L (3.5-5.1); TOTAL BILIRUBIN 0.6 mg/dL (0.2-1.0); TOTAL PROTEIN 6.6 g/dL (6.4-8.2)
--- NOTE | 2021-09-05 12:42 | NUR ---
THIS RN SPOKE WITH THE PATIENT'S , ROSY ATKINS FROM [phone] OVER THE PHONE AND SHE WAS UPDATED AND EDUCATED ON THE PATIENT'S CONDITION AND PLAN OF CARE.
--- NOTE | 2021-09-05 16:25 | NUR ---
PATIENT NOT PROGRESSING TOWARDS THE PLAN OF CARE EVIDENCED BY INABILITY TO WEAN OFF BiPAP SETTINGS. PATIENT TURNED ON TO HIS BACK AT 1603.
--- NOTE | 2021-09-05 23:19 | NUR ---
2130: Spoke at length with pt's , Shari. Update given on pt status. Pt's had several questions regarding intubation; education done on how pt is intubated, sedation protocols, general pt care and nutrition while pt is on vent. Dr. Fontana rounding about this time. Enhanced Precaution isolation dc'd per physician order.
[2021-09-06] VITALS (75 sets, daily range): BP systolic 73–190; BP diastolic 26–97
[2021-09-06 05:21] LABS: HEMATOCRIT 40.1 % (42.0-52.0); HEMOGLOBIN 13.6 gm/dL (14.0-18.0); MCH 33.8 pg (26.0-34.0); MCHC 33.8 g/dL (28.0-37.0); MCV 99.8 fL (80.0-100.0); RBC 4.01 mil/uL (4.50-6.00); RDW 12.7 % (10.5-14.5); WBC 18.1 thou/uL (4.0-11.0)
[2021-09-06 05:27] LABS: CALCIUM 9.3 mg/dL (8.5-10.1); CREATININE 0.7 mg/dL (0.7-1.3); MAGNESIUM 1.6 mg/dL (1.8-2.4); POTASSIUM 4.4 mmol/L (3.5-5.1)
[2021-09-06 05:41] LABS: DIRECT BILIRUBIN 1.8 mg/dL (<0.1-0.2); TOTAL BILIRUBIN 2.2 mg/dL (0.2-1.0); TOTAL PROTEIN 6.3 g/dL (6.4-8.2)
--- NOTE | 2021-09-06 07:14 | NUR ---
No progress toward goals. Pt O2 sat down to high 70's - 90% since 0300; monitor sinus tach with rates up to 140. Pt still declined to be intubated at that but stated he would let Dr. Esquivel intubate in the morning. Dr. Esquivel called at approximately 0700 and made aware of situation.
[2021-09-06 10:37] LABS: BE(vivo) -3.5 mmol/L (-2 to +3); HCO3 25.2 mmol/L (22.0-26.0); PCO2 61.5 mmHg (35.0-45.0); PO2 67.3 mmHg (80.0-100.0); pH 7.231 (7.360-7.450); sO2 89.4 % (92.0-98.0)
--- NOTE | 2021-09-06 15:47 | NUR ---
PT WAS INTUBATED AT [address] TIJERINA. THIS RN, RN NICK, RT NINO, AND RT DWAYNE Mulligan ASSISTED WITH INTUBATION. 8.0 ETT WAS PLACED WITH AC VENT SETTINGS AT RATE OF 22, FIO2 100%, TV 550, AND PEEP 14. PT SATS WERE IN THE 80S POST-INTUBATION, BUT WERE UP TO LOW 90S BY 1200. PT WAS STARTED ON PROPOFOL AND FENTANYL GTTS FOR INTUBATION AND WAS SWITCHED FROM PROPOFOL TO VERSED GTT AT 1136. PT WAS ALSO STARTED ON LEVO GTT AT 1136 FOR MAP <60. MAP IS CURRENTLY >65, SPO2 IS 93%, AND PT IS SINUS TACH IN THE 110S. THIS RN ALSO PLACED AN OG TUBE TO LIS. PLACEMENT OF ETT AND OG WERE CONFIRMED BY BEDSIDE XRAY. PT'S ROSY WAS AT BEDSIDE POST-INTUBATION AND WAS UPDATED ON PT'S STATUS AND POC. ROSY WAS ALSO EDUCATED REGARDING THE USE OF RESTRAINTS ON THE PT TO PREVENT DISCONNECTION OF MEDICAL EQUIPMENT. HER QUESTIONS WERE ANSWERED AND SHE WAS GIVEN BAGS BY THIS RN TO TAKE HOME SOME OF THE PT'S BELONGINGS. WILL CONTINUE TO MONITOR AND FOLLOW POC.
[2021-09-07 00:13] LABS: CALCIUM 5.5 mg/dL (8.5-10.1); POTASSIUM 7.3 mmol/L (3.5-5.1)
--- NOTE | 2021-09-07 04:08 | NUR ---
Assumed care at 1900. pt sedated and intubated. This RN called Dr. Mendoza at 2019 to report titration of levophed to maximum levels. an ordered of vasopressin was received at this time. pt BP did not improve and DR. mendoza was notified. neosynephrine was ordered and RT asked to draw ABG. HOGSHEAD INSPECTOR was called at 2199 and peaked T wave reported. BMP labs ordered and drawn Pt's called from 2156 - 2199. She was updated on the pt's condition and plan of care Pt coded at 2358, code blue initiated and CPR started. Pt at 11 This RN called [facility] at 0036. referral # obtained. Pt not a canditate for any type of donation Pt's family visited from 0120 - 0145. Pt's , Shari Martinez, took pt's belongings with her, including pt's wedding ring and phone. Security came and transported pt's body at 0300 Nursing summary worksheet completed and placed with pt records
--- NOTE | 2021-09-09 15:07 | PATH ---
[facility] [address] [place] [address] PATHOLOGY RPT PROCEDURE Name: DWAYNE ATKINS Room #: 240-P DIS IN M.R.#: [id number] Admission: 08/19/21 Date of : 61 Discharge: 09/07/21 Report #: [id number] Path Case #: [id number] Note [facility] Accession Number: [id number] TESTS RESULT FLAG UNITS REF RANGE LAB Clinician Provided Cytology Information No. of containers..01 Other (Miscellaneous) Source: [A] 01 BAL DIAGNOSIS: [A] 02 BAL(SITE NOT SPECIFIED) INCONCLUSIVE--FEW ATYPICAL CELLS PRESENT, FAVOR BENIGN. SEE COMMENT COMMENT: REVIEWED WITH DR. CLEVE BROWN ON 08/30/2021 WHO AGRES WITH THE DIAGNOSIS. Signed out by: 02 Alli Hamilton MD, Pathologist NPI- [id number] Performed by: Cely Vital, Healthcare Financial Analyst ([facility]) Gross description: 01 9ML, MACKENZIE, MILKY /LCS 09/07/2021 1315 Local FLAG LEGEND: L-Low Normal,H-High Normal,LL-Alert Low,HH-Alert High <-Panic Low,>-Panic High,A-Abnormal,AA-Critical Abnormal Performed at: [address] [place] [address] Kishor Love MD, [address] [place] [phone] Alli Hamilton MD, Specimen Comment: A courtesy copy of this report has been sent to [phone], [phone] Specimen Comment: [id number] Specimen Comment: Report sent to / DR LINDSAY Performed at: [address], [place], [place] [id number] MD Kishor Love MD Phone: [phone]
== END 2021-09-07 00:12 | DRG 871 ==
LOC: ER 08:13 → EROBS 11:46 → ICU 11:46
PROVIDERS: Emergency Medicine; Hospitalist; Internal Medicine; Internal Medicine Pulmonary Disease; Nurse Practitioner; Nurse Practitioner Family; Pediatrics; Specialist; ADMIT Hospitalist; ATTEND Hospitalist
PROC: XW033E5 Introduction of Remdesivir Anti-infective into Peripheral Vein, Percutaneous Approach, New Technology Group 5 (ICD-10-PCS; principal; 2021-08-19)
PROC: 02HV33Z Insertion of Infusion Device into Superior Vena Cava, Percutaneous Approach (ICD-10-PCS; 2021-08-20)
PROC: 5A09557 Assistance with Respiratory Ventilation, Greater than 96 Consecutive Hours, Continuous Positive Airway Pressure (ICD-10-PCS; 2021-08-20)
PROC: 0B9J8ZX Drainage of Left Lower Lung Lobe, Via Natural or Artificial Opening Endoscopic, Diagnostic (ICD-10-PCS; 2021-09-06)
PROC: 5A1935Z Respiratory Ventilation, Less than 24 Consecutive Hours (ICD-10-PCS; 2021-09-06)
PROC: 0BH17EZ Insertion of Endotracheal Airway into Trachea, Via Natural or Artificial Opening (ICD-10-PCS; 2021-09-06)
PROC: 5A12012 Performance of Cardiac Output, Single, Manual (ICD-10-PCS; 2021-09-07)
DX: A41.89 Other specified sepsis (principal); U07.1 COVID-19; J12.82 Pneumonia due to coronavirus disease 2019; J80 Acute respiratory distress syndrome; G92.8 Other toxic encephalopathy; E87.1 Hypo-osmolality and hyponatremia; N17.9 Acute kidney failure, unspecified; R65.20 Severe sepsis without septic shock; I48.0 Paroxysmal atrial fibrillation; D69.6 Thrombocytopenia, unspecified; R74.01 Elevation of levels of liver transaminase levels; Z87.891 Personal history of nicotine dependence
CPT/HCPCS: 10078; 27000